=== PATIENT | male | born 1975 | race Caucasian/White ===

== ENCOUNTER 2017-04-03 18:52 | Emergency (ER) | payer OTHER ==
[2017-04-03] MEDS ORDERED: PEPCID IV ONE (19:13)
[2017-04-03] MEDS ORDERED: NACL 0.9% 1000 ML 1,000 ML IV ONE (19:13)
--- NOTE | 2017-04-03 19:19 | Emergency Department Report ---
HPI - General Chief Complaint: Allergic Reaction Time Seen by Provider: 04/03/17 19:09 - HPI HPI: 41 yo male who comes in today due to a possible allergic reaction. He states that he was at home eating with his and then noticed an itching sensation in his throat. He states that he thinks that it is the pesto pasta. He's never had it before, and everything else he ate he's had in the past. He admits to feeling a sensation of his throat closing. He then took 50 mg of benadryl. Vitals stable in the ED. ED Past Medical Hx - Past Medical History Previous Medical History?: No - Surgical History Past Surgical History?: No - Social History Smoking Status: Never Smoker Substance Use Type: Alcohol - Medications Home Medications: Home Medications Medication Instructions Recorded Confirmed Last Taken Type EPINEPHrine [Epipen] 0.3 mg IM ONCE PRN #1 auto.injct 04/03/17 Unknown Rx ED Review of Systems ROS: Stated complaint: ALLERGIC REACTION Other details as noted in HPI Constitutional: malaise Eyes: denies: eye pain, eye discharge, vision change ENT: throat pain Respiratory: denies: cough, shortness of breath, wheezing Cardiovascular: denies: chest pain, palpitations Endocrine: no symptoms reported Gastrointestinal: denies: abdominal pain, nausea, diarrhea Genitourinary: denies: urgency, dysuria Musculoskeletal: denies: back pain, joint swelling, arthralgia Skin: denies: rash, lesions Neurological: denies: headache, weakness, paresthesias Psychiatric: denies: anxiety, depression Hematological/Lymphatic: denies: easy bleeding, easy bruising Physical Exam - Physical Exam Vital Signs: Vital Signs 04/03/17 18:57 Temperature 97.4 F L Pulse Rate 114 H Respiratory 16 Rate Blood Pressure 107/68 O2 Sat by Pulse 100 Oximetry General: No rash noted on physical exam. Physical Exam: Secretions noted in the posterior oropharynx. Airway intact. ED Course Vital Signs 04/03/17 18:57 Temperature 97.4 F L Pulse Rate 114 H Respiratory 16 Rate Blood Pressure 107/68 O2 Sat by Pulse 100 Oximetry - Reevaluation(s) Reevaluation #1: 04/03/17 19:25 IV solumedrol, pepcid, and ivf's being given in the ED. Will reasses the patient on completion of meds. Reevaluation #2: 04/03/17 20:15 Patient states that he feels much better after medications. Home when stable. ED Medical Decision Making - Medical Decision Making Food allergy Allergic reaction - Differential Diagnosis food allergy, allergic reaction Critical care attestation.: If time is entered above; I have spent that time in minutes in the direct care of this critically ill patient, excluding procedure time. ED Disposition Clinical Impression: Food allergy, Allergic reaction Disposition: - TO HOME OR SELFCARE Is pt being admited?: No Does the pt Need Aspirin: No Condition: Stable Instructions: Food Allergy (ED), Allergies (ED) Additional Instructions: Use medicine as directed in case of an allergic reaction. Also remember to go to the nearest ED in case of an allergic reaction for evaluation and treatment. Prescriptions: EPINEPHrine [Epipen] 0.3 mg IM ONCE PRN #1 auto.injct PRN Reason: Allergic Reaction Referrals: TRACEY POE MD [Primary Care Provider] - 3-5 Days Time of Disposition: 20:22
[2017-04-03 20:31] VITALS: BP 150/96
== END 2017-04-03 20:33 | disposition home or self-care (01) ==
LOC: ED 18:52
DX: T78.1XXA Other adverse food reactions, not elsewhere classified, initial encounter (principal)
CPT/HCPCS: 96361; 96374; 96375; 99282; J2930; J7030

== ENCOUNTER 2019-02-03 21:47 | Emergency (ER) | payer OTHER ==
[2019-02-03 22:02] VITALS: BP 162/103
== END 2019-02-03 22:31 | disposition left against medical advice (07) ==
LOC: ED 21:47
DX: S61.511A Laceration without foreign body of right wrist, initial encounter (principal); W26.8XXA Contact with other sharp object(s), not elsewhere classified, initial encounter; Y93.89 Activity, other specified; Y92.89 Other specified places as the place of occurrence of the external cause; Y99.8 Other external cause status; Z53.21 Procedure and treatment not carried out due to patient leaving prior to being seen by health care provider